=== PATIENT | male | born 1940 | race Caucasian/White ===

== ENCOUNTER → 2016-07-06 | Outpatient (CLI) | payer MEDICARE ==
[~2016-07-06] MED LIST: ACCUNEB DP0.63 MG/3 IH; ADVAIR DIS1 PUFF/DO1 PO; CALCIUM WITH V1 EAC1 PO; COLACE-DPS100 MG PO; DELTASONE DPS10 MG PO; FLEXERIL DPS5 MG PO; HYDROCODONE 5MG/5 MG PO; LEVAQUIN DPS500 MG PO; MOBIC DPS7.5 MG PO; MULTI VITAMIN1 EACH PO; OXYGEN NS; PRESERVISION A1 EAC1 PO; PROVENTIL2.5 MG/3 M PO; SPIRIVA RESPIMAT4 GM IH; TYLENOL DPS325 MG PO
== END | disposition home or self-care (01) ==
LOC: RAD.S 10:19
DX: R49.0 Dysphonia (principal); R47.89 Other speech disturbances